=== PATIENT | female | born 1960 | race Two or more races ===

== ENCOUNTER 2025-02-20 16:38 | Inpatient (IN) | payer MEDICAID ==
[~2025-02-20] VITALS: Ht 154.9 cm; Wt 61.3 kg
[2025-02-20] MEDS ORDERED: LOSA-382 PO (16:45)
[2025-02-20] MEDS ORDERED: AMLO-257 PO (16:45)
[2025-02-20 17:14] LABS: PLATELET COUNT (AUTO) 346 K/uL (150-450); RED BLOOD CELL COUNT(AUTO) 4.53 MIL/uL (4.00-5.20); RED CELL DISTRIBUTION WIDTH 13.9 % (11.5-14.5); WHITE BLOOD COUNT (AUTO) 7.6 K/uL (4.5-11.0)
[2025-02-20 17:29] LABS: TROPONIN I-HIGH SENSITIVITY 5 ng/L (<51)
[2025-02-20 17:38] LABS: CALCIUM, TOTAL 8.6 mg/dL (8.8-10.5); CREATININE 0.67 mg/dL (0.60-1.30); GLOMERULAR FILTR. RATE CALC > 60 mL/min (>60); GLUCOSE,RANDOM 114 mg/dL (70-110); SODIUM SERUM 127 mmol/L (136-145); UREA NITROGEN, BLOOD 6 mg/dL (7-18)
[2025-02-20 17:42] LABS: ASPARTATE AMINOTRANSFERASE 29 U/L (15-37); TOTAL PROTEIN, SERUM 7.6 g/dL (6.4-8.2)
[2025-02-20] MEDS: POTASSIUM CHLORIDE 20 MEQ ER TABLET PO ONE (18:16)
[2025-02-20] MEDS: POTASSIUM CHL 10 MEQ/WATER 50 ML IV SCH (18:17)
[2025-02-20] MEDS: SODIUM CHLORIDE 0.9% 1,000 ML IV ONE (18:17)
[2025-02-20] MEDS ORDERED: ACETAMINOPHEN 325 MG TABLET PO PRN (20:00)
[2025-02-20] MEDS ORDERED: ONDANSETRON HCL 4 MG/2 ML VIAL IVP PRN (20:00)
[2025-02-20 20:25] LABS: APPEARANCE,URINE CLEAR (CLEAR); GLUCOSE, URINE (UA) NEGATIVE (NEGATIVE); LEUKOCYTE ESTERASE ,URINE NEGATIVE (NEGATIVE); NITRATE,URINE NEGATIVE (NEGATIVE); OCCULT BLOOD,URINE TRACE (NEGATIVE); SPECIFIC GRAVITIY, URINE 1.003 (1.003-1.030)
[2025-02-20 20:27] LABS: SQUAMOUS EPITHELIAL CELL,UR Rare /LPF (None Seen)
[2025-02-20] MEDS: CefTRIAXone 1 GM/DEXTROSE 50 ML IV SCH (20:32)
[2025-02-20] MEDS: DOCUSATE SODIUM 100 MG CAPSULE PO SCH (20:35)
[2025-02-20] MEDS: AZITHROMYCIN 500 MG/NS 250 ML IV SCH (20:59)
[2025-02-20 22:16] VITALS: BP 159/98; PULSE 86; RESP 18; TEMP 98.2; O2SAT 99
[2025-02-21] MEDS: HEPARIN SODIUM,PORCINE 5,000 UNITS/ML VIAL SQ SCH
[2025-02-21 00:38] LABS: SODIUM SERUM 141.0 mmol/L (136-145)
[2025-02-21 01:19] VITALS: BP 155/91; PULSE 70; RESP 19; TEMP 98.2; O2SAT 98
[2025-02-21 04:35] VITALS: BP 142/91; PULSE 100; RESP 18; TEMP 98.1; O2SAT 100
[2025-02-21] MEDS ORDERED: ASPI-1450 PO (05:15)
[2025-02-21] MEDS ORDERED: LOSA50TA65 PO (05:15)
[2025-02-21 06:37] LABS: PLATELET COUNT (AUTO) 336 K/uL (150-450); RED BLOOD CELL COUNT(AUTO) 4.35 MIL/uL (4.00-5.20); RED CELL DISTRIBUTION WIDTH 14.0 % (11.5-14.5); WHITE BLOOD COUNT (AUTO) 5.5 K/uL (4.5-11.0)
[2025-02-21 06:57] LABS: CALCIUM, TOTAL 8.7 mg/dL (8.8-10.5); CREATININE 0.54 mg/dL (0.60-1.30); GLOMERULAR FILTR. RATE CALC > 60 mL/min (>60); GLUCOSE,RANDOM 82 mg/dL (70-110); SODIUM SERUM 143 mmol/L (136-145); UREA NITROGEN, BLOOD 7 mg/dL (7-18)
[2025-02-21 08:24] VITALS: BP_SYST 164; BP_SYST 183; BP_DIAS 79; BP_DIAS 95; PULSE 80; PULSE 81; RESP 19; TEMP 98.2; O2SAT 97
[2025-02-21 11:36] VITALS: BP 162/80; PULSE 81; RESP 18; TEMP 98; O2SAT 100
[2025-02-21] MEDS ORDERED: CEFD300C18 PO (12:16)
[2025-02-21] MEDS ORDERED: AZIT-164 PO (12:16)
== END 2025-02-21 13:10 | disposition home or self-care (01) | DRG 139 ==
LOC: EMS 16:38 → EDH 19:54 → 5S 22:15
PROVIDERS: ADMIT Internal Medicine; ATTEND Internal Medicine
DX: J18.9 Pneumonia, unspecified organism (principal); E87.1 Hypo-osmolality and hyponatremia; I10 Essential (primary) hypertension; R55 Syncope and collapse; E87.6 Hypokalemia; E78.00 Pure hypercholesterolemia, unspecified; F41.9 Anxiety disorder, unspecified; Z79.899 Other long term (current) drug therapy
CPT/HCPCS: 71045; 80048; 80053; 81001; 83735; 84132; 84295; 84484; 85025; 85651; 93005; 99285; J0456; J0696; J1644; J3480; J7030; 36415-L1; 36415-TC